=== PATIENT | female | born 1975 | race Caucasian/White ===

== ENCOUNTER → 2018-12-19 | Outpatient (CLI) | payer OTHER ==
--- NOTE | 2018-12-19 10:02 | RAD ---
Examination: PELVIS COMPLETE History: Pelvic pain Comparison/Correlation: None Findings: Transvaginal pelvic ultrasound exam was performed. Hysterectomy noted. Right ovary measures 2.1 cm x 2.9 cm x 2.4 cm. A 1 cm diameter follicle is present and physiologic in appearance. The left ovary measures 1.9 cm x 2 cm x 2.1 cm. There is a 0.9 cm diameter follicle is physiologic in appearance. No adnexal mass. Flow is identified bilaterally involving the ovaries and is unremarkable on color and spectral Doppler imaging. Normal variant echotexture. No pelvic free fluid. Impression: No suspicious process. Discectomy. Electronically signed by: Arash Newell MD (12/19/2018 9:59 AM) [facility]
--- NOTE | 2018-12-19 10:04 | RAD ---
Examination: ABDOMEN COMPLETE History: Right upper quadrant pain Comparison/Correlation: None Findings: Upper abdominal ultrasound exam was performed. Hepatic echotexture is normal. Gallbladder is unremarkable. No biliary dilatation. Common bile duct measures 0.2 cm diameter. Right kidney measures 11.1 cm x 6.4 cm x 5.7 cm. Left kidney measures 11.3 cm x 5.3 cm x 4.9 cm. Normal renal contours are present with no hydronephrosis. Proximal pancreas is normal. Distal pancreas is obscured by bowel gas. Spleen is normal in appearance. The visualized abdominal aorta is unremarkable but evaluation of the mid abdominal aorta is obscured by bowel gas. Inferior vena cava is unremarkable. Portal venous flow is normal. No upper abdominal ascites. Impression: Normal abdominal ultrasound exam. Electronically signed by: Arash Newell MD (12/19/2018 10:01 AM) [facility]
== END | disposition home or self-care (01) ==
LOC: US 07:32
PROVIDERS: ATTEND Family Medicine
DX: R10.11 Right upper quadrant pain (principal); R35.0 Frequency of micturition; Z90.710 Acquired absence of both cervix and uterus
CPT/HCPCS: 76700; 76856

== ENCOUNTER 2018-12-29 20:08 | Emergency (ER) | payer OTHER ==
[~2018-12-29] VITALS: Ht 160 cm; Wt 56.0 kg
--- NOTE | 2018-12-29 20:10 | PHYS DOC ---
Past History Past Medical History: Ovarian Cyst Past Surgical History: Hysterectomy Adult General Chief Complaint Chief Complaint: ".. I ve been having problems for a while.. I had a US it was okay..and had a X ray and that did not show anything... I ve been following up with Dr. Mary. ... but the pain tonight seem worse in this Rt. flank and abdomen...." [facility] HPI Patient is a 43 year old female who presents with above hx and complaints of right flank and abd. pain. Patient has had problems for the past week. Patient has had previous x-ray and pelvic sono which reportedly were negative. Patient has had a partial hysterectomy . Patient has history history of a past ovarian cyst. Possible history of endometriosis. Patient denies any history of renal st ones with her or family members. Patient denies any history of colitis with her family members . No history of trauma. No history of bad food. No history of travel. No history immunosuppression. Follows with Dr. Pedro Pablo Mary Review of Systems Review of Systems Constitutional: Denies fever or chills [] Eyes: Denies change in visual acuity, redness, or eye pain [] HENT: Denies nasal congestion or sore throat [] Respiratory: Denies cough or shortness of breath [] Cardiovascular: No additional information not addressed in HPI [] GI: Complaints of mid rt and cva bdominal pain, nausea. Denies vomiting, bloody stools or diarrhea [] : Denies dysuria or hematuria [] Musculoskeletal: Denies back pain or joint pain [] Integument: Denies rash or skin lesions [] Neurologic: Denies headache, focal weakness or sensory changes [] Endocrine: Denies polyuria or polydipsia [] All other systems were reviewed and found to be within normal limits, except as documented in this note. Family History Family History Noncontributory Current Medications Current Medications See nursing for home meds Allergies Allergies Allergies penicillins Physical Exam Physical Exam Constitutional: Moderate acute distress, non-toxic appearance. [] HENT: Normocephalic, atraumatic, bilateral external ears normal, oropharynx moist, no oral exudates, nose normal. [] Eyes: PERRLA, EOMI, conjunctiva normal, no discharge. [] Neck: Normal range of motion, no tenderness, supple, no stridor. [] Cardiovascular:Heart rate regular rhythm, no murmur [] Lungs & Thorax: Bilateral breath sounds equal at apexes on auscultation [] Abdomen: Bowel sounds normal, soft, Rt. flank and Rt sided abdomen tenderness, mild tympanic distention, no pulsatile masses. [Declined rectal and pelvic exam at this time. ( No hx discharge. ) Mild rebound to mid Rt abdomen and CVA. Old surgical scar Skin: Warm, dry, no erythema, no rash. [] Back: No tenderness, Rt. CVA tenderness. [] Extremities: No tenderness, no cyanosis, no clubbing, ROM intact, no edema. [] No true psoas sign. Neurologic: Alert and oriented X 3, normal motor function, normal sensory function, no focal deficits noted. [] Psychologic: Affect anxious, judgement normal, mood normal. [] EKG EKG [] Radiology/Procedures Radiology/Procedures [address] [address] IMAGING REPORT Signed PATIENT: GRISELDA DALLAS LACCOUNT: [id number] : 1975 LOCATION: ER AGE: 43 SEX: F EXAM STATUS: REG ER ORD. PHYSICIAN: CHARLES ARNETT MD REASON: pain, RIGHT FLANK PAIN PROCEDURE: ACUTE ABDOMEN SERIES EXAM: Abdomen acute complete. HISTORY: Flank pain. COMPARISON: None. FINDINGS: A frontal view the chest and frontal upright and supine views of the abdomen are obtained. There is no infiltrate, pleural effusion or pneumothorax. The heart is normal in size. There is gas and stool within the colon. There is no evidence of bowel obstruction. There is no free air. There is no convincing calcific lesion overlying the renal shadows or course of the ureters, with evaluation limited due to overlying bowel. IMPRESSION: 1. No acute pulmonary finding. 2. Nonobstructive bowel gas pattern. Electronically signed by: Cheryl Vargas MD (12/29/2018 10:04 PM) [facility] DICTATED AND SIGNED BY: CHERYL VARGAS MD DATE: 12/29/182203 CC: JONNA MARY MD; CHARLES ARNETT MD ~ [[address] [address] IMAGING REPORT Signed PATIENT: GRISELDA DALLAS LACCOUNT: [id number] : 1975 LOCATION: ER AGE: 43 SEX: F EXAM STATUS: REG ER ORD. PHYSICIAN: CHARLES ARNETT MD REASON: Rt. Flank pain, hx neg. US, no hydronephrosis PROCEDURE: CT ABD PELV W/ORAL&IV CONTRAST INDICATION: Abdomen pain COMPARISON: None. TECHNIQUE: Axial CT images obtained through the abdomen and pelvis with contrast. One or more of the following individualized dose reduction techniques were utilized for this examination: 1. Automated exposure control; 2. Adjustment of the mA and/or kV according to patient size; 3. Use of iterative reconstruction technique. FINDINGS: Abdominal aorta is not aneurysmal. No intrahepatic bile duct dilation. No peripancreatic fluid collection. Spleen unremarkable. No left-sided hydronephrosis. Urinary bladder is partially distended at time of exam. Mild prominence right extrarenal pelvis. Within the left adnexa there is a rim-enhancing structure measuring approximately 25 mm. The appendix is not dilated. Mild haziness the fat adjacent to the colon Degenerative changes of the spine. IMPRESSION: * Mild indistinctness the fat adjacent to the colon. This is a mild finding but causes such as early colitis not excluded. * Within the left adnexa there is a rim-enhancing structure identified. Could be from an ovarian lesion if the patient still has an ovary. Electronically signed by: Andrea Torres MD (12/29/2018 11:41 PM) [place] [id number]][address] [address] IMAGING REPORT Signed PATIENT: GRISELDA DALLAS LACCOUNT: [id number] : 1975 LOCATION: ER AGE: 43 SEX: F EXAM STATUS: REG ER ORD. PHYSICIAN: CHARLES ARNETT MD REASON: pain, RIGHT FLANK PAIN PROCEDURE: ACUTE ABDOMEN SERIES EXAM: Abdomen acute complete. HISTORY: Flank pain. COMPARISON: None. FINDINGS: A frontal view the chest and frontal upright and supine views of the abdomen are obtained. There is no infiltrate, pleural effusion or pneumothorax. The heart is normal in size. There is gas and stool within the colon. There is no evidence of bowel obstruction. There is no free air. There is no convincing calcific lesion overlying the renal shadows or course of the ureters, with evaluation limited due to overlying bowel. IMPRESSION: 1. No acute pulmonary finding. 2. Nonobstructive bowel gas pattern. Electronically signed by: Cheryl Vargas MD (12/29/2018 10:04 PM) [facility] DICTATED AND SIGNED BY: CHERYL VARGAS MD DATE: 12/29/182203 CC: JONNA MARY MD; CHARLES ARNETT MD ~ Course & Med Decision Making Course & Med Decision Making Pertinent Labs and Imaging studies reviewed. (See chart for details) Clear fluid diet only x 48 hrs. No solids or milk products. Push clear fluids. Take Flagyl 500 mg three times a day. Levaquin 500 x 5days. Zofran 8- qid for nausea and vomiting as needed. Follow up with primary. Return if any concerns. May need repeat US- possible Lt. Adnexal rim - Ovarian. Vicoprofen up to 4 times day for marked pain. []Impression: 1. Abdomen pain Rt CVA and mid Abdomen 2. Left ovarian cyst 3. Right colon colitis Keep follow-up with Dr. Mary. Consider repeat colonoscopy. Possible laparoscopic if colonoscopy is negative. Return if any concerns. Dragon Disclaimer Dragon Disclaimer This electronic medical record was generated, in whole or in part, using a voice recognition dictation system. Departure Departure: Disposition: 01 HOME/RESIDENCE PRIOR TO ADM Condition: STABLE Referrals: JONNA MARY MD (PCP) Dragon Disclaimer This chart was dictated in whole or in part using Voice Recognition software in a busy, high-work load, and often noisy Emergency Department environment. It may contain unintended and wholly unrecognized errors or omissions. HCARLES ARNETT MD Dec 29, 2018 20:10
[2018-12-29] MEDS ORDERED: FAMOTIDINE 20 MG/2 ML VIAL IVP ONE (20:15)
[2018-12-29] MEDS ORDERED: ONDANSETRON PF 4 MG/2 ML VIAL. IVP ONE (20:15)
[2018-12-29 20:57] LABS: BASO # 0.1 x10^3/uL (0.0-0.2); BASO % 1 % (0-3); EOS # 0.2 x10^3/uL (0.0-0.7); EOS % 2 % (0-3); HEMATOCRIT 41.5 % (36.0-47.0); LYMPH # 2.9 x10^3/uL (1.0-4.8); LYMPH % 39 % (24-48); MEAN CORPUSCULAR HEMOGLOBIN 32 pg (25-35); MEAN CORPUSCULAR HGB CONC 34 g/dL (31-37); MEAN CORPUSCULAR VOLUME 95 fL (79-100); MONO # 0.6 x10^3/uL (0.0-1.1); MONO % 9 % (0-9); NEUT # 3.6 x10^3uL (1.8-7.7); NEUT % 49 % (31-73); PLATELET COUNT 259 x10^3/uL (140-400); RED BLOOD COUNT 4.36 x10^6/uL (3.50-5.40); RED CELL DISTRIBUTION WIDTH 12.9 % (11.5-14.5); WHITE BLOOD COUNT 7.4 x10^3/uL (4.0-11.0)
[2018-12-29 21:01] LABS: BARBITURATES NEG (NEG); BENZODIAZEPINES NEG (NEG); CANNABINOIDS NEG (NEG); COCAINE NEG (NEG); METHADONE NEG (NEG); OPIATES NEG (NEG); PHENCYCLIDINE NEG (NEG)
[2018-12-29 21:06] LABS: BACTERIA,URINE FEW /HPF (0-FEW); BILIRUBIN,URINE NEG (NEG); CLARITY,URINE CLEAR; COLOR,URINE STRAW; GLUCOSE,URINE NEG (NEG); NITRITE,URINE NEG (NEG); RBC,URINE RARE /HPF (0-2); SQUAMOUS EPITHELIAL CELL,UR OCC /LPF; UROBILINOGEN,URINE 0.2 mg/dL (0.2 mg/dL); WBC,URINE OCC /HPF (0-4)
[2018-12-29 21:09] LABS: AMPHETAMINE/METHAMPHETAMINE NEG (NEG)
[2018-12-29 21:11] LABS: ALBUMIN 4.2 g/dL (3.4-5.0); CALCIUM 9.3 mg/dL (8.5-10.1); CREATININE 1.1 mg/dL (0.6-1.0); DIRECT BILIRUBIN 0.1 mg/dL (0.0-0.2); POTASSIUM 4.1 mmol/L (3.5-5.1); TOTAL BILIRUBIN 0.2 mg/dL (0.2-1.0); TOTAL PROTEIN 7.4 g/dL (6.4-8.2)
[2018-12-29] MEDS ORDERED: MORPHINE SULFATE 10 MG/ML SYRINGE. SQ ONE (21:30)
[2018-12-29] MEDS ORDERED: CONTRAST GIVEN MC PRN (21:30)
[2018-12-29] MEDS ORDERED: IOHEXOL 240 MG/ML 50ML VIAL. PO ONE (22:00)
[2018-12-29] MEDS ORDERED: IV RINGERS SOLUTION,LACTATED 1,000 ML IV ONE (22:00)
[2018-12-29] MEDS ORDERED: IOHEXOL 300 MG/ML 75 ML VIAL. IV ONE (22:00)
--- NOTE | 2018-12-29 22:07 | RAD ---
EXAM: Abdomen acute complete. HISTORY: Flank pain. COMPARISON: None. FINDINGS: A frontal view the chest and frontal upright and supine views of the abdomen are obtained. There is no infiltrate, pleural effusion or pneumothorax. The heart is normal in size. There is gas and stool within the colon. There is no evidence of bowel obstruction. There is no free air. There is no convincing calcific lesion overlying the renal shadows or course of the ureters, with evaluation limited due to overlying bowel. IMPRESSION: 1. No acute pulmonary finding. 2. Nonobstructive bowel gas pattern. Electronically signed by: Cheryl Araujo MD (12/29/2018 10:04 PM) [facility]
--- NOTE | 2018-12-29 23:44 | RAD ---
INDICATION: Abdomen pain COMPARISON: None. TECHNIQUE: Axial CT images obtained through the abdomen and pelvis with contrast. One or more of the following individualized dose reduction techniques were utilized for this examination: 1. Automated exposure control; 2. Adjustment of the mA and/or kV according to patient size; 3. Use of iterative reconstruction technique. FINDINGS: Abdominal aorta is not aneurysmal. No intrahepatic bile duct dilation. No peripancreatic fluid collection. Spleen unremarkable. No left-sided hydronephrosis. Urinary bladder is partially distended at time of exam. Mild prominence right extrarenal pelvis. Within the left adnexa there is a rim-enhancing structure measuring approximately 25 mm. The appendix is not dilated. Mild haziness the fat adjacent to the colon Degenerative changes of the spine. IMPRESSION: * Mild indistinctness the fat adjacent to the colon. This is a mild finding but causes such as early colitis not excluded. * Within the left adnexa there is a rim-enhancing structure identified. Could be from an ovarian lesion if the patient still has an ovary. Electronically signed by: Andrea Torres MD (12/29/2018 11:41 PM) [facility]
[2018-12-30 01:25] VITALS: BP 101/60
[2018-12-30] MEDS ORDERED: ONDANSETRON PF 4 MG/2 ML VIAL. IVP ONE (01:30)
== END 2018-12-30 01:25 | disposition home or self-care (01) ==
LOC: ER 20:08
DX: N83.202 Unspecified ovarian cyst, left side (principal); K52.89 Other specified noninfective gastroenteritis and colitis; Z90.710 Acquired absence of both cervix and uterus
CPT/HCPCS: 36415; 74022; 74177; 80048; 80076; 80307; 81001; 81025; 82150; 82550; 83690; 84484; 85025; 85610; 85730; 96361; 96372; 96374; 96375; 96376; 99285; J2270; J2405; J3490; J7120; Q9966; Q9967

== ENCOUNTER → 2019-03-13 | Outpatient (CLI) | payer OTHER ==
[2019-03-13 11:02] LABS: ALBUMIN 3.9 g/dL (3.4-5.0); CALCIUM 8.6 mg/dL (8.5-10.1); CREATININE 0.7 mg/dL (0.6-1.0); GFR 90.9; POTASSIUM 4.5 mmol/L (3.5-5.1); TOTAL BILIRUBIN 0.2 mg/dL (0.2-1.0); TOTAL PROTEIN 7.7 g/dL (6.4-8.2)
[2019-03-13 13:42] LABS: FREE T4 0.83 ng/dL (0.76-1.46); THYROID STIM HORMONE (TSH) 1.369 uIU/mL (0.358-3.740)
[2019-03-17 16:07] LABS: GLIA IGA 5 units (0-19); GLIA IGG 2 units (0-19); TRANSGLUTAMINASE IGA AB <2 U/mL (0-3); TRANSGLUTAMINASE IGG AB <2 U/mL (0-5)
== END | disposition home or self-care (01) ==
LOC: LAB 09:48
PROVIDERS: ATTEND Internal Medicine Gastroenterology
DX: R10.11 Right upper quadrant pain (principal); R10.13 Epigastric pain; R63.4 Abnormal weight loss
CPT/HCPCS: 36415; 80053; 83516; 84439; 84443

== ENCOUNTER → 2019-11-19 | Outpatient (CLI) | payer OTHER ==
--- NOTE | 2019-11-19 15:15 | RAD ---
4 views of the right shoulder without comparison for right shoulder pain. FINDINGS: There is no fracture, dislocation, or acute osseous abnormality identified. Joints and soft tissues are grossly unremarkable. IMPRESSION: 1. No acute osseous abnormality. Electronically signed by: Cj Alaniz MD (11/19/2019 3:12 PM) [id number]
== END ==
LOC: DXRAD 13:10
PROVIDERS: ATTEND Orthopaedic Surgery
DX: M25.511 Pain in right shoulder (principal)
CPT/HCPCS: 73030